=== PATIENT | female | born 1995 | race Caucasian/White ===

== ENCOUNTER 2018-09-18 15:48 | Outpatient (REF) | payer BC, SELFPAY ==
--- NOTE | 2018-09-18 15:00 | PAPFT_PTH ---
PATIENT: Jeanine Plunkett LOC: [place] U#:[id number] AGE/SX: / ROOM: RE09/18/[address]: TONNY Mtz : 1995 BED: DIS: 09/18/2018 SPEC #: [id number] RECD: 09/18/18 17:17 STATUS: NAOMIE REQ #: [id number] MIRZA: 09/18/18 15:[address]: Josefina Cardoso DEPT: [facility] Cytology RECD BY: Meagan Irwin ENTERED: 09/18/18 17:18 SP TYPE: PAPFT OT DR: None Tissues: 1 - CX/ENDOCX FOR PAP SMEARS Procedures: PAP THIN PREP/[facility] Screening Comments: [id number]
[2018-09-21 13:13] LABS: Chlamydia Result Negative; GC Result Negative
== END 2018-09-18 16:08 ==
LOC: LBN 15:48
PROVIDERS: Visit Provider Nurse Practitioner Family
DX: Z11.3 Encounter for screening for infections with a predominantly sexual mode of transmission (principal); Z12.4 Encounter for screening for malignant neoplasm of cervix
CPT/HCPCS: 87491; 87591; 88142

== ENCOUNTER 2021-03-22 14:21 | Emergency (ER) | payer BC, SELFPAY ==
[2021-03-22 14:38] VITALS: BP 126/83; PULSE 73; TEMP 37; O2SAT 91
--- NOTE | 2021-03-22 14:45 | DI.RAD_ITS ---
Exam(s) XR PORTABLE CHEST AP EXAM: XR PORTABLE CHEST AP CLINICAL HISTORY: Shortness of breath TECHNIQUE: 2D digital imaging was performed. COMPARISON: CR CHEST 2 VIEWS PA,LAT from 12/15/2015 FINDINGS: LUNGS: Clear. No pleural abnormality seen. HEART: Normal. MEDIASTINUM: Normal. BONES: Unremarkable. IMPRESSION: No acute pulmonary findings. DATA REPOSITORY: RADIATION DOSE DELIVERED:
[2021-03-22] MEDS: Dexamethasone 10 MG/ML VIAL IVP (15:02)
[2021-03-22] MEDS: Normal Saline 1,000 ML 1000 ML IV (15:02)
[2021-03-22 15:13] LABS: HCT 44.2 % (36.0-46.0); HGB 14.7 g/dL (11.2-15.7); MCH 30.4 pg (27.0-33.0); MCHC 33.3 % (32.0-36.0); MCV 91.5 fL (80-95); MPV 9.7 fL (8.0-11.0); Nucleated RBC 0 %; Platelet Count 141 10^3/uL (130-400); RBC 4.83 10^6/uL (3.93-5.22); RDW 12.3 % (11.7-14.6); RDW-SD 41.1 fL; WBC 5.88 10^3/uL (4.4-10.8)
[2021-03-22 15:25] LABS: ALT 26 U/L (14-59); AST 17 U/L (15-37); Albumin 3.9 g/dL (3.4-5.0); Alkaline Phosphatase 69 U/L (46-116); Anion Gap 9.2 mmol/L (3-11); BUN 6 mg/dL (7-18); Bilirubin, Total 0.2 mg/dL (0.2-1.0); CO2 27.8 mmol/L (21.0-32.0); CREATININE 0.8 mg/dL (0.55-1.02); Calcium 8.8 mg/dL (8.5-10.1); Chloride 101 mmol/L (98-107); Glucose 84 mg/dL (74-106); Potassium 3.4 mmol/L (3.5-5.1); Sodium 138 mmol/L (136-145); Total Protein 7.5 g/dL (6.4-8.2)
[2021-03-22 15:26] LABS: Absolute Lymphocyte Count 2.47 10^3/uL (1.2-3.4); Absolute Monocyte Count 0.35 10^3/uL (0.1-0.8); Absolute Neutrophil Count 3.06 10^3/uL (1.2-6.7); Atypical Lymphocytes % 14; Diff Comment Manual Differential; RBC Morphology Normal
[2021-03-22 15:42] VITALS: RESP 4
[2021-03-22] MEDS: Albuterol/Ipratropium 3 ML UPD VIAL UPD (15:42)
[2021-03-22] MEDS: Potassium Chloride 20 MEQ TABCR 40 MEQ PO (15:42)
--- NOTE | 2021-03-22 15:49 | ED.GENADUL_ITS ---
Discharge Plan Disposition Patient Disposition: HOME Condition: Improving Discharge Details Clinical Impression: COVID-19 Primary Care Provider: Unknown,Unknown ED Provider: Senthil Tony Home Meds and New Rx's Prescriptions: New albuterol sulfate 90 mcg/actuation HFA aerosol inhaler 2 puff inhalation Q6H PRN (Reason: shortness of breath or wheezing) Qty: 6.7 RF: 0 Continued Mirena 20 mcg/24 hours (5 yrs) 52 mg intrauterine device 1 device IY ONCE RF: 0 epinephrine 0.3 MG/SYR auto-injector 0.3 mg IJ DIRECTED RF: 0 Discharge Instructions Instructions: COVID-19 (Coronavirus Disease 2019) (ED) Additional Instructions: Staying well-hydrated and continue to monitor your oxygen. Oxygen level should remain above 90% on a finger probe with no fingernail indonesian and good reading as discussed.. For any significant new or worsening symptoms including difficulty breathing shortness of breath or worsening of condition please return to the emergency department. You should remain quarantined for 10 days from symptom onset and then if you are fever free and showing signs of improvement you may come out of quarantine at that point. Discharge Data Discharge Date/Time-TO BE ENTERED AT DEPARTURE: 03/22/21 16:20 Medical Decision Making Patient presenting to the emergency department for chief complaint of worsening cold symptoms after testing positive on home Covid testing 4 days ago. She states sore throat, shortness of breath, generalized malaise, and headache. Physical exam shows diffuse expiratory wheezing but no signs of respiratory distress, patient does have erythematous posterior pharynx no exudates. No signs of meningitis, no acute respiratory distress, vital signs stable but initial O2 does show some slight hypoxia. Patient does report that she is fully vaccinated but has not received her booster. Reassessment after DuoNeb shows completely clear lung sounds, normal oxygen saturation and patient continues to appear not having no distress. Labs are unremarkable for any emergent findings. Patient prescribed inhaler for home use and instructed on how to monitor oxygen saturation given high suspicion of Covid positive with home testing. At this time patient does not meet criteria for inpatient admission, monoclonal antibodies, and I suspect that she will recover well. Return and follow-up precautions were thoroughly discussed at time of discharge. I do feel that possible initial low oxygen saturation could be secondary to fingernail indonesian that was not removed and later O2 saturations of normal value were obtained with ear probe. After discussion of diagnosis and plan of care patient has no further needs, questions, or concerns and states clear understanding to return to the emergency department for any worsening symptoms. HPI General Mode of arrival: ambulatory . Date/Time Provider Initiated Documentation: 03/22/21 14:23 . Limitations to Documentation: no limitations . Information obtained by: patient . History of Present Illness 25 year old F presents to the emergency department with the chief complaint of Cold symptoms, described as moderate, with intensity rated at 8. Quality is described as aching, and is localized to the mouth (Sore throat). Patient reports no radiation. Patient started experiencing this day(s) (2) and it has been constant. No relieving factors improve symptom(s), No exacerbating factors reported . Patient notes cough, fever/chills, malaise and shortness of breath; denies chest pain, nausea/vomiting and rash. Related Data Home Medications Medication Instructions Recorded Confirmed epinephrine 0.3 mg IJ DIRECTED 04/07/15 03/22/21 levonorgestrel 20 mcg/24 hours (7 1 device IY ONCE 09/29/18 03/22/21 yrs) 52 mg intrauterine device albuterol sulfate 2 puff INHALATION Q6H PRN #6.7 g 03/22/21 Previous Rx's Medication Instructions Recorded albuterol sulfate 2 puff INHALATION Q6H PRN #6.7 g 03/22/21 Allergies Allergy/AdvReac Type Severity Reaction Status Date / Time venom-honey bee Allergy Hives Unverified 03/22/21 14:42 General Stated Complaint: RespSymp MARYCHUY: 3 Review of Systems Constitutional Constitutional: Reports body ache(s), Reports chills, Reports fever(s), Reports headache(s) and Reports malaise Eyes Eyes: Denies eye discharge ENT Ears, Nose, Mouth, and Throat: Reports as per HPI, Denies ear discharge, Reports otalgia, Reports headache(s), Reports nasal congestion, Denies neck pain, Reports sore throat and Denies throat swelling Cardiovascular Cardiovascular: Denies chest pain and Reports dyspnea Respiratory Respiratory: Reports cough and Reports dyspnea Gastrointestinal Gastrointestinal: Denies nausea and Denies vomiting Musculoskeletal Musculoskeletal: Denies joint swelling and Denies neck pain Integumentary/Breasts Skin/Breast: Denies rash Neurologic Neurologic: Reports headache(s) Hematologic/Lymphatic Hematologic/Lymphatic: Reports other (Painful lymph nodes) Allergic/Immunologic Allergic/Immunologic: Denies throat swelling PFSH All Active Problems (Updated 03/22/21 @ 16:05 by Senthil Tony NP) COVID-19 (Acute) IUD surveillance (Acute) Contraception (Acute 04/16/16) Surgical History Tonsillectomy and adenoidectomy (04/10/15) Social History Smoking/Tobacco Use Status: Never Smoking risk assessment performed?: Yes Alcohol Intake: current Alcohol Intake frequency: a few times a month Drug use: Never Substance use type: does not use Do you feel safe at home: Yes Do you feel safe in your relationship?: Yes Female Reproductive History Menstrual control method: progestin IUCD (MIRENA INSERTED TODAY LOT # [id number] EXP 02/2021) Exam Const General: cooperative, comfortable and no acute distress Orientation: alert and awake HENWA Head: normal to inspection, normocephalic and atraumatic Ears: hearing grossly normal bilaterally and TM's normal bilaterally General nose exam: external nose normal Face and sinus: no erythema Mouth: oral mucosae normal, no drooling, no muffled voice and no trismus Throat: posterior oropharynx abnormal erythema; no exudates, tonsils absent and uvula not displaced Neck Neck: normal visual inspection, full ROM, no lymphadenopathy, no meningeal signs, trachea midline and supple Resp Effort & Inspection: normal respiratory effort, able to speak in complete sentences and cough Quality of cough: dry Auscultation: wheezes expiratory wheezes and scattered wheezes Cardio Rate: regular rate Rhythm: regular rhythm Heart Sounds: S1 normal, S2 normal, normal S1 and S2, no click, no gallops, no murmurs and no rubs Skin General skin exam: no rashes or lesions noted and dry skin (warm) Neuro General: patient alert, patient awake, patient oriented x3, gait normal and moves all extremities Cognition: normal cognition Speech: speech normal Course Vital Signs Vital signs: Vital Signs Temperature 37.0 C 03/22/21 14:38 Pulse 73 03/22/21 14:38 Blood Pressure 126/83 03/22/21 14:38 Pulse Oximetry 91 L 03/22/21 14:38 Temperature 37.0 C 03/22/21 14:38 Temperature Source Oral 03/22/21 14:38 Pulse 73 03/22/21 14:38 Respiratory Effort 03/22/21 15:47 Respiratory Depth Normal 03/22/21 15:47 Blood Pressure 126/83 03/22/21 14:38 Blood Pressure Position Sitting 03/22/21 14:38 Pulse Oximetry 91 L 03/22/21 14:38 Oxygen Delivery Method Room Air 03/22/21 14:38 Oxygen Flow Rate 0 03/22/21 14:38 Lab/Test Results Lab/Test Results: 03/22/21 14:55 Tonsil - Not Specified Group A Streptococcus Culture - Pending Laboratory Tests Range/Units 03/22/21 03/22/21 14:52 14:52 WBC (4.4-10.8) 10^3/uL 5.88 RBC (3.93-5.22) 10^6/uL 4.83 Hgb (11.2-15.7) g/dL 14.7 Hct (36.0-46.0) % 44.2 MCV (80-95) fL 91.5 MCH (27.0-33.0) pg 30.4 MCHC (32.0-36.0) % 33.3 RDW (11.7-14.6) % 12.3 Plt Count (130-400) 10^3/uL 141 MPV (8.0-11.0) fL 9.7 Immature Gran % 0.0 Neutrophils % 52.0 Lymphocytes % 28.0 Atypical Lymphs % 14 Monocytes % 6.0 Eosinophils % 0.0 Basophils % 0.0 Nucleated RBC % % 0 Absolute Neutrophils (1.2-6.7) 10^3/uL 3.06 Absolute Lymphocytes (1.2-3.4) 10^3/uL 2.47 Absolute Monocytes (0.1-0.8) 10^3/uL 0.35 Absolute Eosinophils (0.0-0.7) 10^3/uL 0.00 Absolute Basophils (0.0-0.2) 10^3/uL 0.00 RBC Morphology Normal Sodium (136-145) mmol/L 138 Potassium (3.5-5.1) mmol/L 3.4 L Chloride (98-107) mmol/L 101 Carbon Dioxide (21.0-32.0) mmol/L 27.8 Anion Gap (3-11) mmol/L 9.2 BUN (7-18) mg/dL 6 L Creatinine (0.55-1.02) mg/dL 0.8 Estimated GFR/1.73 m2 (mL/min/1.73m2) >= 60.00 Glucose (74-106) mg/dL 84 Calcium (8.5-10.1) mg/dL 8.8 Total Bilirubin (0.2-1.0) mg/dL 0.2 AST (15-37) U/L 17 ALT (14-59) U/L 26 Alkaline Phosphatase (46-116) U/L 69 Total Protein (6.4-8.2) g/dL 7.5 Albumin (3.4-5.0) g/dL 3.9 POC Strep Test-DAQUAN(Rapid) Start: 03/22/21 14:45 Freq: .Rapid Strep Test Status: Active Protocol: Document 03/22/21 15:05 TB (Rec: 03/22/21 15:05 TB [id number]) Strep test-DAQUAN(Rapid)-POC POC-Strep test-DAQUAN (Rapid) Negative POC-Strep test-DAQUAN (Rapid) Negative
[2021-03-22 16:21] VITALS: BP 114/66; PULSE 99; RESP 16; O2SAT 94
[2021-03-24 15:03] LABS: COVID-19 RT-PCR UVMMC Result Positive (Negative)
== END 2021-03-22 16:20 | disposition home or self-care (01) ==
PROVIDERS: Emergency Provider Nurse Practitioner Family
DX: U07.1 COVID-19 (principal); R06.02 Shortness of breath; J02.9 Acute pharyngitis, unspecified; R51.9 Headache, unspecified; R53.81 Other malaise; R09.02 Hypoxemia
CPT/HCPCS: 36415; 80053; 87880; 94640; 96361; 96374; 99284; U0003; 71045; 85025; 87081; J1100; J7620